=== PATIENT | male | born 1985 | race Two or more races ===

== ENCOUNTER 2018-07-01 12:47 | Observation (INO) | payer MEDICAID, OTHER ==
--- NOTE | 2018-07-01 13:23 | EDPHY ---
H & P Stated Complaint: Flu-like sxs x 1 wk; other family members w/same sxs - Personal History Current Tetanus Diphtheria and Acellular Pertussis (TDAP): Unsure - Medical/Surgical History Hx Asthma: No Hx Chronic Respiratory Disease: No Hx Diabetes: No Hx Cardiac Disease: No Hx Renal Disease: No Hx Cirrhosis: No Hx Alcoholism: No Hx HIV/AIDS: No Hx Splenectomy or Spleen Trauma: No Other PMH: HX KIDNEY TRANSPLANT 2010, HEP B - Social History Smoking Status: Never smoked Time Seen by Provider: 07/01/18 13:04 HPI/ROS: CHIEF COMPLAINT: Fever, flu-like symptoms times 5-6 days HISTORY OF PRESENT ILLNESS: 33-year-old male history of renal transplant in 2006, chronic immunosuppressant therapy, complaining of 5-6 days nonproductive cough, rhinorrhea, sore throat, flu-like symptoms, subjective fever. No influenza vaccination. Denies: Chest pain, dyspnea, abdominal pain, urinary abnormality, diarrhea, otalgia, nuchal rigidity REVIEW OF SYSTEMS: 10 systems reviewed and negative with the exception of the elements mentioned in the history of present illness PAST MEDICAL & SURGICAL HISTORY: 2006 kidney transplant, chronic immunosuppressant therapy. No Influenza vaccination this season SOCIAL HISTORY: Nonsmoker. PHYSICAL EXAM (Prior to examination, patient consented to physical exam, hands were washed and my usual and customary physical exam procedures followed) 1) GENERAL: Well-developed, well-nourished, alert and oriented. Appears to be in no acute distress. Answering questions appropriately 2) HEAD: Normocephalic, atraumatic 3) HEENT: Pupils equal, round, reactive to light bilaterally. Sclera anicteric. Nasopharynx, oropharynx, clear, no lesions. Moist Mucous membranes. No tonsillar enlargement or exudate Ears bilaterally with normal tympanic membranes. 4) NECK: Full range of motion, no meningeal signs. 5) LUNGS: Clear auscultation bilaterally, no wheezes, no rhonchi, no retractions. 6) HEART: Regular rate and rhythm, no murmur, no heave, no gallop. 7) ABDOMEN: No guarding, no rebound, no focal tenderness, negative McBurney's, negative Peacock's, negative Rovsing's, negative peritoneal sign, 8) MUSCULOSKELETAL: Moving all extremities, no focal areas of tenderness, no obvious trauma. No peripheral edema or discoloration. 9) BACK: No CVA tenderness, no midline vertebral tenderness, no fluctuance, no step-off, no obvious trauma, no visual or palpable abnormality. 10) SKIN: No rash, no petechiae. 11) Psychiatric: Patient is oriented X 3, there is no agitation. DIFFERENTIAL DIAGNOSIS: In no particular order include but limited to bronchitis, pneumonia, meningitis (Janeen Blanco) Constitutional: Initial Vital Signs Temperature (C) 37 C 07/01/18 12:48 Heart Rate 84 07/01/18 12:48 Respiratory Rate 16 07/01/18 12:48 Blood Pressure 111/89 H 07/01/18 12:48 O2 Sat (%) 98 07/01/18 12:48 O2 Delivery Mode Room Air Allergies/Adverse Reactions: No Known Allergies Allergy (Verified 07/01/18 12:48) Home Medications: Medication Instructions Recorded Labetalol HCl [Trandate 200 mg (*)] 600 mg PO BID 07/20/12 Mycophenolate Mofetil [Cellcept] 1,000 mg PO BID 07/20/12 Omeprazole 20 mg PO DAILY 07/20/12 Tacrolimus [Prograf] 1 mg PO Q12H 07/20/12 predniSONE [Prednisone] 5 mg PO DAILY 07/20/12 amLODIPine BESYLATE [Norvasc 5 mg 5 mg PO DAILY 06/18/14 (*)] Acetaminophen [Tylenol 325mg (*)] 325 mg PO DAILY PRN 07/01/18 Cholecalciferol Vit D3 [Vitamin D3 1,000 units PO DAILY 07/01/18 (*)] Medical Decision Making - Diagnostics Imaging Results: Imaging Impressions Chest X-Ray 07/01/18 13:14 Impression: Medial segment, right middle lobe infiltrate. Clinical correlation and follow-up to assure resolution are recommended. Findings were discussed with Ezekiel Blanco PA-C at 14:16, on 07/01/2018. Images reviewed myself (Janeen Blanco) ED Course/Re-evaluation: 2:24 p.m.: Patient has new right middle lobe infiltrate. The case was discussed with Dr. Brody Perez in the ER. Although the patient is not hypoxemic, he does have a history of chronic immunosuppressant therapy and notable middle lobe infiltrate. Negative influenza testing. Recommend hospital admission for IV antibiotics and observation. Patient is agreeable with this. 2:33 p.m.: Consultation Dr. Naveen Randolph hospitalist to admit patient. Patient has a calculated creatinine clearance of 22.69, patient will be given 750 mg Levaquin every 48 hr. adjusted dosing (Janeen Blanco) I did not see this patient while he was in the emergency department. However his care was discussed with the PA while the patient was in the department. I agree with treatment plan and management (Brody Perez) - Data Points Laboratory Results: Laboratory Results 07/01/18 13:20 07/01/18 13:20 07/01/18 07/01/18 07/01/18 14:10 13:20 13:20 WBC RBC Hgb Hct MCV MCH MCHC RDW Plt Count MPV Neut % (Auto) Lymph % (Auto) Mccreary % (Auto) Eos % (Auto) Baso % (Auto) Nucleat RBC Rel Count Absolute Neuts (auto) Absolute Lymphs (auto) Absolute Monos (auto) Absolute Eos (auto) Absolute Basos (auto) Absolute Nucleated RBC Immature Gran % Immature Gran # PT 13.9 SEC SEC (12.0-15.0) INR 1.05 (0.83-1.16) APTT 40.2 SEC H SEC (23.0-38.0) VBG Lactic Acid 0.7 mmol/L mmol/L (0.7-2.1) Sodium 139 mEq/L mEq/L (135-145) Potassium 4.0 mEq/L mEq/L (3.5-5.2) Chloride 108 mEq/L mEq/L (97-110) Carbon Dioxide 18 mEq/l L mEq/l (22-31) Anion Gap 13 mEq/L mEq/L (6-14) BUN 26 mg/dL H mg/dL (7-23) Creatinine 3.6 mg/dL H mg/dL (0.7-1.3) Estimated GFR 19 Glucose 115 mg/dL H mg/dL (70-100) Calcium 9.2 mg/dL mg/dL (8.5-10.4) Total Bilirubin 0.4 mg/dL mg/dL (0.1-1.4) Nasal Influenza A PCR Nasal Influenza B PCR 07/01/18 07/01/18 13:20 13:15 WBC 14.72 10^3/uL H 10^3/uL (3.80-9.50) RBC 3.37 10^6/uL L 10^6/uL (4.40-6.38) Hgb 10.2 g/dL L g/dL (13.7-17.5) Hct 29.9 % L % (40.0-51.0) MCV 88.7 fL fL (81.5-99.8) MCH 30.3 pg pg (27.9-34.1) MCHC 34.1 g/dL g/dL (32.4-36.7) RDW 13.3 % % (11.5-15.2) Plt Count 262 10^3/uL 10^3/uL (150-400) MPV 10.1 fL fL (8.7-11.7) Neut % (Auto) 89.8 % H % (39.3-74.2) Lymph % (Auto) 4.6 % L % (15.0-45.0) Mccreary % (Auto) 4.6 % % (4.5-13.0) Eos % (Auto) 0.3 % L % (0.6-7.6) Baso % (Auto) 0.2 % L % (0.3-1.7) Nucleat RBC Rel Count 0.0 % % (0.0-0.2) Absolute Neuts (auto) 13.22 10^3/uL H 10^3/uL (1.70-6.50) Absolute Lymphs (auto) 0.67 10^3/uL L 10^3/uL (1.00-3.00) Absolute Monos (auto) 0.68 10^3/uL 10^3/uL (0.30-0.80) Absolute Eos (auto) 0.05 10^3/uL 10^3/uL (0.03-0.40) Absolute Basos (auto) 0.03 10^3/uL 10^3/uL (0.02-0.10) Absolute Nucleated RBC 0.00 10^3/uL 10^3/uL (0-0.01) Immature Gran % 0.5 % % (0.0-1.1) Immature Gran # 0.07 10^3/uL 10^3/uL (0.00-0.10) PT INR APTT VBG Lactic Acid Sodium Potassium Chloride Carbon Dioxide Anion Gap BUN Creatinine Estimated GFR Glucose Calcium Total Bilirubin Nasal Influenza A PCR NEGATIVE FOR FLU A (NEGATIVE) Nasal Influenza B PCR NEGATIVE FOR FLU B (NEGATIVE) Microbiology Results: MICROBIOLOGY 07/01/18 13:15 Nasal, Sinus - Swab Respiratory Panel (PCR) - Final Coronavirus 229E Detected Medications Given: Albuterol/Ipratropium (Duoneb) 3 ml IH QID HAILE Stop: 12/28/18 15:59 Last Admin: 07/01/18 20:13 Dose: Not Given Sodium Chloride (Ns) 1,000 mls @ 125 mls/hr IV CONT HAILE Stop: 12/28/18 14:59 Last Admin: 07/01/18 17:23 Dose: 1,000 mls Discontinued Medications Levofloxacin/Dextrose (Levaquin 750 Mg (Premix)) 150 mls @ 100 mls/hr IV EDNOW ONE PRN Reason: Protocol Stop: 07/01/18 16:04 Last Admin: 07/01/18 14:53 Dose: 150 mls Departure - Departure Disposition: [facility] Inpatient Acute Clinical Impression: Renal transplant recipient Chronic kidney disease Qualifiers: Chronic kidney disease stage: unspecified stage Qualified Code(s): N18.9 - Chronic kidney disease, unspecified Pneumonia Qualifiers: Pneumonia type: due to unspecified organism Laterality: right Lung location: middle lobe of lung Qualified Code(s): J18.1 - Lobar pneumonia, unspecified organism Condition: Fair
[2018-07-01 13:32] LABS: PLATELET COUNT 262 10^3/uL (150-400)
[2018-07-01 13:40] LABS: INR 1.05 (0.83-1.16); PROTIME(PATIENT) 13.9 SEC (12.0-15.0)
[2018-07-01] MEDS ORDERED: NS 1,000 ML IV SCH (15:00)
[2018-07-01] MEDS ORDERED: ACETAMINOPHEN 325 MG TAB PO PRN ×2 (15:00→20:26)
[2018-07-01] MEDS: IPRATROPIUM/ALBUTEROL 3 ML DEYVIAL IH SCH ×2 (20:13→21:40)
--- NOTE | 2018-07-01 21:26 | GHP ---
DATE OF ADMISSION: 07/01/2018 CHIEF COMPLAINT: Fevers and cough. HISTORY OF PRESENT ILLNESS: Mr. Power is a pleasant, 33-year-old gentleman with a past m edical history of endstage renal disease status post renal transplant in 2010, who presented to the [facility] Emergency Room after experiencing fevers and productive cough. Chest imagi ng revealed the presence of a right middle lobe infiltrate. PCR testing was positive for coronavirus . The patient's creatinine was measured at 3.6, values noted here at [facility] prev iously had ranged between 2.7 and 5.0. That range was during a time when he had suspected rejection. He states at this time he has been followed at the [facility]. He is uncertain as to w hat his baseline creatinine is currently. He did say though that it was not within normal limits as he recalls that it did not fully recover after the time of that hospitalization. PAST MEDICAL HISTORY: 1. End-stage renal disease status post renal transplant in 2010. Patient's initial renal failure oc curred in 2003, and he was on hemodialysis starting at that time. 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 2. History of uremic pericarditis. PAST SURGICAL HISTORY: Renal transplant, AV fistula. CURRENT MEDICATIONS: Amlodipine 5 mg daily; labetalol 600 mg twice a day; mycophenolate 1000 mg twic e a day; omeprazole 20 mg daily; prednisone 5 mg daily; tacrolimus 1 mg every 12 hours. ALLERGIES: No known drug allergies. FAMILY HISTORY: Mother is living; she had some sort of heart surgery, but patient is unsure of the d etails. Father is currently living and reportedly healthy. 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 He is a nonsmoker. REVIEW OF SYSTEMS: A 10-point review of systems was negative except for being positive for fevers an d cough. PHYSICAL EXAM: VITAL SIGNS: Temp 36.8, blood pressure 129/85, heart rate 98, respirations 16, satur ating 98% on room air. GENERAL: Patient appears comfortable. He is awake, alert, conversant, nonto xic appearing. HEENT: Extraocular movement intact. No scleral icterus. NECK: Supple. No adenopa thy appreciated. CHEST: Clear to auscultation. No significant wheezing. Respiratory effort is nor mal. HEART: Regular, no murmurs. ABDOMEN: Soft, nontender, nondistended. Surgical scar from leandro l transplant noted in the right lower quadrant. EXTREMITIES: No significant pitting edema. NEUROLO GIC: Cranial nerves 2-12 intact with strength 5/5 in all extremities. LABS: White blood cell count 14, hemoglobin 10, platelets 262. Sodium 139, potassium 4.0, chloride 108, bicarb 18, BUN 26, creatinine 3.6, glucose 115. INR 1.0. Lactic acid 0.7. Flu PCR negative. Blood cultures pending. IMAGING: Chest x-ray with right middle lobe infiltrate. ASSESSMENT AND PLAN: 1. Pneumonia: Patient with right middle lobe pneumonia on chest imaging. Possibly secondary bacter ial pneumonia. Patient was given a dose of Levaquin in the emergency room. Based on his creatinine, he would be due for a 2nd dose after 48 hours. Continue with scheduled nebulizers overnight. 2. Possible acute kidney injury: Uncertain baseline creatinine currently, although it does sound li ke it is not within normal limits based upon the patient's report. IV fluids overnight and reassess in the morning. His most recent lab work is at the [facility]. 3. Leukocytosis: Trend with antibiotic therapy. 4. End-stage renal disease: Patient is status post renal transplant in 2010. 5. Deep venous thrombosis prophylaxis: Heparin. DISPOSITION: Admit under observation. /[id number]/MODL
[2018-07-01] MEDS: LABETALOL HCL 200 MG TAB PO SCH (21:43)
[2018-07-01] MEDS: MYCOPHENOLATE MOFETIL 250 MG CAP PO SCH (21:46)
[2018-07-01] MEDS: TACROLIMUS 1 MG CAP PO SCH (21:47)
[2018-07-01] MEDS: HEPARIN 5,000 UNIT/0.5 ML INJ SC SCH (21:48)
[2018-07-02] MEDS: HEPARIN 5,000 UNIT/0.5 ML INJ SC SCH (05:07)
[2018-07-02 05:16] LABS: PLATELET COUNT 215 10^3/uL (150-400)
[2018-07-02 08:14] VITALS: BP 108/74
[2018-07-02] MEDS ORDERED: amLODIPine BESYLATE 5 MG TAB PO SCH (09:00)
[2018-07-02] MEDS ORDERED: predniSONE 5 MG TAB PO SCH (09:00)
[2018-07-02] MEDS ORDERED: PANTOPRAZOLE SODIUM 40 MG TAB PO SCH (09:00)
[2018-07-02] MEDS: TACROLIMUS 1 MG CAP PO SCH (09:41)
[2018-07-02] MEDS: LABETALOL HCL 200 MG TAB PO SCH (09:42)
[2018-07-02] MEDS: MYCOPHENOLATE MOFETIL 250 MG CAP PO SCH (09:43)
--- NOTE | 2018-07-02 14:01 | ASMTLACE ---
LACE Length of stay for Answers: Less than 1 day current admission Acuity / Level of Answers: No Care: Did the patient have an inpatient admission? Comorbidities - select Answers: Moderate or severe liver all that apply or renal disease # of Emergency department Answers: 1-2 visits in the last 6 months Score: 5 Date Signed: 07/02/2018 02:01 PM Electronically Signed By:Poonam Burch RN
--- NOTE | 2018-07-02 14:08 | ASMTCMCOM ---
CM Note CM Note Notes: Reviewed chart. Pt presented to the Emergency Department with a fever and cough. History includes immunosupression secondary to endstage renal disease with hx of a renal transplant, AV fistula, and uremic pericarditis. Pt to discharge home independently today with no identified needs. No IM/PRESLEY signed, not applicable. Pt to follow up as directed. CM available for any further issues or concerns. Discharge Plan: Home independently Date Signed: 07/02/2018 02:07 PM Electronically Signed By:Poonam Burch RN
--- NOTE | 2018-07-02 14:31 | ASDISCHSUM ---
Discharge Information Plan Status:Home with No Needs Medically Cleared to Leave:07/01/2018 Discharge Date:07/02/2018 01:28 PM CM D/C Disposition:Home, Routine, Self-Care ADT D/C Disposition:Home, Routine, Self-Care Projected Discharge Date:07/02/2018 01:28 PM Transportation at D/C:Family Discharge Delay Reason: Follow-Up Date:07/02/2018 01:28 PM Discharge Slot:1 - 8:01 am - 12:00 noon Final Diagnosis:Pneumonia, hx of immunosupression secondary to endstage renal dx w/ renal transplant Placement Information Patient Contact Information Contact Name:MOISE Relationship:Father Address: Work Phone: City:[place] Alternate Phone: [facility]/[employer] Code:[place] Email: Financial Information Financial Class:Medicaid Primary Plan Desc:MEDICAID [facility] [employer] Primary Plan Number:[id number] Secondary Plan Desc: Secondary Plan Number: Assessment Information LACE LACE Length of stay for Answers: Less than 1 day current admission Acuity / Level of Answers: No Care: Did the patient have an inpatient admission? Comorbidities - select Answers: Moderate or severe liver all that apply or renal disease # of Emergency department Answers: 1-2 visits in the last 6 months Score: 5 Date Signed: 07/02/2018 02:01 PM Electronically Signed By:Poonam Burch RN [facility] Progress Note CM Note CM Note Notes: Reviewed chart. Pt presented to the Emergency Department with a fever and cough. History includes immunosupression secondary to endstage renal disease with hx of a renal transplant, AV fistula, and uremic pericarditis. Pt to discharge home independently today with no identified needs. No IM/PRESLEY signed, not applicable. Pt to follow up as directed. CM available for any further issues or concerns. Discharge Plan: Home independently Date Signed: 07/02/2018 02:07 PM Electronically Signed By:Poonam Burch RN Intervention Information
--- NOTE | 2018-07-02 20:59 | GDS ---
DISCHARGE DIAGNOSES: 1. Coronavirus with suspected secondary bacterial pneumonia. 2. End-stage renal disease status post renal transplant. HISTORY OF PRESENT ILLNESS: The patient is a pleasant 33-year-old gentleman with a past medical hist ory of end-stage renal disease status post renal transplant in 2010, who presented to the [facility] Emergency Room after experiencing several days of productive cough and fevers. His c hest imaging revealed the presence of a right middle lobe infiltrate. PCR testing was positive for c oronavirus. He was admitted and started on Levaquin therapy. With this, his white blood cell count did normalize from 14,000 on admission to 8.5. He remained afebrile. Overall his course was uncompl icated, and he did quite well. He was recommended to discharge with 2 additional doses of Levaquin t o be taken every 48 hours. He states he has upcoming followup visit with his information systems specialist in 1 week' s time. Has uncertainty as to his baseline creatinine. When he first came into the hospital, it was measured at 3.6. He has had creatinine values here measured between 2.7 and 5.0. It did improve sl ightly overnight with IV fluids to 3.4. HOSPITAL COURSE BY PROBLEM: Pneumonia: Suspected bacterial pneumonia. This may be secondary to a c oronavirus infection considering immunosuppression. Clinically he seems to be doing quite well and n ot needing any oxygen. I recommend he continue with Levaquin 750 mg to be taken every 48 hours x2 ad ditional doses. Possible acute kidney injury: Uncertainty as unknown baseline. I suspect his baseline may be somewh ere around 2.5-3. He has upcoming followup visit with Nephrology. Leukocytosis: Resolved. End-stage renal disease: Patient is status post renal transplant. DVT prophylaxis: Heparin was used. DISPOSITION: He appears stable for discharge home at this time. DISCHARGE PHYSICAL EXAMINATION: VITAL SIGNS: Temperature 36.4, blood pressure 108/74, heart rate 73 , respirations 16, sating 99% on room air. GENERAL: Patient appeared comfortable. He was awake, al ert, conversant in no acute distress. HEART: Regular rate and rhythm. No murmurs. LUNGS: Clear t o auscultation. Crackles at lung bases heard on the day prior were not present on today's exam. ABD OMEN: Soft, nontender, nondistended. : No Granados catheter in place. EXTREMITIES: No significant pitting edema. NOTABLE STUDIES: Chest x-ray from 07/01/2018, showed right middle lobe infiltrate. DISCHARGE MEDICATIONS: Amlodipine 5 mg daily, labetalol 600 mg twice a day, Levaquin 750 mg q. 48 ho urs x2 doses, CellCept 1000 mg twice a day, omeprazole 20 mg daily, prednisone 5 mg daily, tacrolimus 1 mg every 12 hours. DISCHARGE INSTRUCTIONS: I recommended he keep his upcoming followup visit with his information systems specialist next week and with his primary care provider in the coming 2-4 weeks. /[id number]/MODL
== END 2018-07-02 13:28 | disposition home or self-care (01) ==
LOC: F3N 21:10
PROVIDERS: ADMIT Internal Medicine; ATTEND Internal Medicine
DX: B97.29 Other coronavirus as the cause of diseases classified elsewhere (principal); N18.6 End stage renal disease; I32 Pericarditis in diseases classified elsewhere; D84.9 Immunodeficiency, unspecified; J18.1 Lobar pneumonia, unspecified organism; I77.0 Arteriovenous fistula, acquired; Z94.0 Kidney transplant status
CPT/HCPCS: 71046; 96361; 96372; 96374; 99285; G0378; 87449-90; J1644; J1956; J7507; J7512